=== PATIENT | male | born 1990 | race African-American/Black ===

== ENCOUNTER 2017-09-22 16:32 | Emergency (ER) | payer SELFPAY ==
[~2017-09-22] VITALS: Ht 165.1 cm; Wt 61.2 kg
[2017-09-22 17:09] VITALS: BP 139/87
--- NOTE | 2017-09-22 17:12 | NUR ---
[facility] PT AMBULATES BACK TO THE LOBBY
--- NOTE | 2017-09-22 19:28 | NUR ---
PATIENT LEFT WITHOUT BEING SEEN BY DR. GORDON. NO FURTHER CARE PROVIDED FOR PATIENT.
== END 2017-09-22 19:28 | disposition left against medical advice (07) ==
LOC: MED 16:32
DX: S61.216A Laceration without foreign body of right little finger without damage to nail, initial encounter (principal); Z53.21 Procedure and treatment not carried out due to patient leaving prior to being seen by health care provider; W45.8XXA Other foreign body or object entering through skin, initial encounter; Y93.G1 Activity, food preparation and clean up; Y92.098 Other place in other non-institutional residence as the place of occurrence of the external cause; Y99.8 Other external cause status

== ENCOUNTER 2021-10-07 10:29 | Emergency (ER) | payer MEDICAID ==
[~2021-10-07] VITALS: Ht 170.2 cm; Wt 65.8 kg
[2021-10-07 10:42] VITALS: BP 126/78
[2021-10-07] MEDS ORDERED: KETOROLAC 30 MG/ML VIAL IM ONE (11:55)
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
[2021-10-07] MEDS ORDERED: CYCL-711 PO (13:46)
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
== END 2021-10-07 14:26 | disposition home or self-care (01) ==
LOC: MED 10:29
DX: M54.9 Dorsalgia, unspecified (principal); F17.290 Nicotine dependence, other tobacco product, uncomplicated; Z79.899 Other long term (current) drug therapy; V89.2XXA Person injured in unspecified motor-vehicle accident, traffic, initial encounter; Y93.89 Activity, other specified; Y92.89 Other specified places as the place of occurrence of the external cause; Y99.8 Other external cause status
CPT/HCPCS: 71045; 72110; 96372; 99284; J1885

== ENCOUNTER 2022-03-14 07:51 | Emergency (ER) | payer SELFPAY ==
[~2022-03-14] VITALS: Ht 167.6 cm; Wt 67.1 kg
[~2022-03-14 07:51] MED LIST: CYCL-711 PO
[2022-03-14 08:20] VITALS: BP 127/95
--- NOTE | 2022-03-14 08:26 | NUR ---
PATIENT AMBULATED TO BED 3.
[2022-03-14] MEDS ORDERED: BACI1PAC6 TP (08:55)
[2022-03-14] MEDS ORDERED: CEPH-588 PO (08:55)
[2022-03-14 09:06] VITALS: BP 136/67
--- NOTE | 2022-03-14 09:07 | NUR ---
Patient discharged with v/s stable. Written and verbal after care instructions given and explained. Patient alert, oriented and verbalized understanding of instructions. Ambulatory with steady gait. All questions addressed prior to discharge. ID band removed. Patient advised to follow up with PMD. Patient educated on indication of medication including possible reaction and side effects. Opportunity to ask questions provided and answered.
== END 2022-03-14 09:07 | disposition home or self-care (01) ==
LOC: MED 07:51
DX: L03.115 Cellulitis of right lower limb (principal); F17.290 Nicotine dependence, other tobacco product, uncomplicated; Z79.899 Other long term (current) drug therapy
CPT/HCPCS: 99283